=== PATIENT | male | born 1995 | race Caucasian/White ===

== ENCOUNTER 2022-12-08 11:54 | Emergency (ER) | payer MEDICAID ==
[~2022-12-08] VITALS: Ht 188 cm; Wt 111.0 kg
[2022-12-08 12:24] VITALS: BP 136/84
== END 2022-12-08 17:43 | disposition left against medical advice (07) ==
LOC: ER 13:50
DX: J06.9 Acute upper respiratory infection, unspecified (principal)
CPT/HCPCS: 99281